=== PATIENT | female | born 1985 | race African-American/Black ===

== ENCOUNTER 2016-05-05 01:23 | Emergency (ER) | payer OTHER ==
[2016-05-05 01:16] LABS: INFLUENZA A NEG (NEG); INFLUENZA B NEG (NEG)
[~2016-05-05 01:23] MED LIST: ALBUTEROL17 G1 IH; BACTRIM DS TABL1 TAB PO; BENZONATATE PO; DEPAKOTE PO; MEDROL PO; RISPERIDONE PO; ZITHROMAX PO
== END 2016-05-05 02:10 | disposition home or self-care (01) ==
LOC: CED 01:23
PROVIDERS: Emergency Medicine
DX: J06.9 Acute upper respiratory infection, unspecified (principal); F31.9 Bipolar disorder, unspecified; F17.210 Nicotine dependence, cigarettes, uncomplicated
CPT/HCPCS: 87804; 99282

== ENCOUNTER 2016-11-14 06:20 | Emergency (ER) | payer OTHER ==
[~2016-11-14] VITALS: Ht 167.6 cm; Wt 102.5 kg
--- NOTE | ~2016-11-14 | EKG ---
PATIENT: MULU HERNDON UNIT #: [id number] Ventricular Rate: 121 BPM Atrial Rate: 121 BPM P-R Interval: 150 ms QRS Duration: 62 ms Q-T Interval: 332 ms QTC Calculation(Bezet): 471 ms P [place]: 74 degrees Calculated R [place]: 17 degrees Calculated T [place]: 21 degrees Diagnosis Line: Sinus tachycardia Diagnosis Line: Possible Left atrial enlargement Diagnosis Line: Borderline ECG Diagnosis Line: When compared with ECG of 27-DEC-2012 04:47, Diagnosis Line: No significant change was found Diagnosis Line: Confirmed by ADILENE GRAF MD ([id number]) on Diagnosis Line: 11/15/2016 9:43:51 AM INTERPRETING MD: LESIA JOSEPH
[2016-11-14 07:17] LABS: BASOPHIL% 0.4 % (0-2.5); EOSINOPHIL# 0.1 X10e3 (0-0.7); EOSINOPHIL% 0.8 % (0.0-7.0); HEMATOCRIT 41.7 % (35.0-45.0); HEMOGLOBIN 14.5 gm/dL (12.0-16.0); LYMPHOCYTE# 1.7 X10e3 (1.0-3.5); LYMPHOCYTE% 18.9 % (17.0-45.0); MEAN CELL VOLUME 87.6 FL (83-96); MEAN CORPUSCULAR HEMOGLOBIN 30.5 PG (28-34); MEAN CORPUSCULAR HGB CONC 34.9 g/dL (30-36); MEAN PLATELET VOLUME 9.2 FL (6.5-11.5); MONOCYTE# 0.5 X10e3 (0-1.0); MONOCYTE% 5.7 % (3.0-12.0); NEUTROPHIL# 6.8 X10e3 (1.5-7.1); NEUTROPHIL% 74.2 % (40-75); PLATELET COUNT 262 X10e3 (140-420); RED BLOOD COUNT 4.76 X10e (3.90-5.30); RED CELL DISTRIBUTION WIDTH 13.7 % (11.0-15.5); WHITE BLOOD COUNT 9.1 X10e3 (4.0-10.5)
[2016-11-14 07:19] LABS: DIFF IND NO
[2016-11-14 07:20] LABS: URINE SOURCE CLEAN CATCH
[2016-11-14 07:24] LABS: URINE APPEARANCE CLEAR; URINE BILIRUBIN NEG (NEG); URINE BLOOD NEG (NEG); URINE COLOR YELLOW; URINE GLUCOSE NEG (NEG); URINE KETONE NEG (NEG); URINE LEUKOCYTE ESTERASE 1+ (NEG); URINE NITRATE NEG (NEG); URINE PROTEIN NEG (NEG); URINE SPECIFIC GRAVITY 1.012 (1.003-1.035); URINE UROBILINOGEN 0.2 MG/DL (NEG)
[2016-11-14 07:27] LABS: CULTURE INDICATED? YES; URINE BACTERIA AUWI NEG (NEGATIVE); URINE SQUAMOUS EPITHELIAL CELL OCC /[HPF]
[2016-11-14 07:58] LABS: AMPHETAMINE NEG (NEG); BARBITURATES NEG (NEG); BENZODIAZEPINES NEG (NEG); COCAINE NEG (NEG); MARIJUANA NEG (NEG); OPIATES NEG (NEG); TRICYCLIC ANTIDEPRESSANTS NEG (NEG); U METHADONE NEG (NEG)
[2016-11-14 08:02] LABS: ALBUMIN SERUM 4.6 g/dL (3.5-5.0); ALKALINE PHOSPHATASE 59 U/L (32-92); ALT (SGPT) 29 U/L (10-40); AST (SGOT) 30 U/L (10-42); BILIRUBIN, DIRECT 0.1 mg/dL (0.0-0.2); BILIRUBIN,TOTAL 0.1 mg/dL (0.2-2.0); BLOOD UREA NITROGEN <5 mg/dL (9-23); BUN/CREATININE RATIO 6.25; CALCIUM SERUM 9.7 mg/dL (8.4-10.2); CARBON DIOXIDE 22 mmol/L (22-31); CHLORIDE 102 mmol/L (100-111); CPK (CREATINE PHOSPHOKINASE) 420 IU/L (26-140); CREATININE SERUM 0.8 mg/dL (0.6-1.4); GLUCOSE FASTING 155 mg/dL (70-110); POTASSIUM 3.4 mmol/L (3.5-5.1); PROTEIN TOTAL SERUM 8.9 g/dL (6.0-8.3); SODIUM 136 mmol/L (135-145)
== END 2016-11-14 09:35 | disposition home or self-care (01) ==
LOC: CED 06:20
PROVIDERS: Emergency Medicine
DX: F41.9 Anxiety disorder, unspecified (principal); M79.1 Myalgia; R00.0 Tachycardia, unspecified
CPT/HCPCS: 36415; 80048; 80076; 80307; 81003; 82550; 85025; 87086; 93005; 96360; 99285

== ENCOUNTER 2016-11-14 23:57 | Emergency (ER) | payer OTHER ==
[~2016-11-14] VITALS: Ht 157.5 cm; Wt 103.0 kg
--- NOTE | ~2016-11-14 | EKG ---
PATIENT: MULU HERNDON UNIT #: [id number] Ventricular Rate: 110 BPM Atrial Rate: 110 BPM P-R Interval: 162 ms QRS Duration: 62 ms Q-T Interval: 336 ms QTC Calculation(Bezet): 454 ms P [place]: 61 degrees Calculated R [place]: 47 degrees Calculated T [place]: 18 degrees Diagnosis Line: Sinus tachycardia Diagnosis Line: Possible Left atrial enlargement Diagnosis Line: Borderline ECG Diagnosis Line: No previous ECGs available Diagnosis Line: Confirmed by ADILENE GRAF MD ([id number]) on Diagnosis Line: 11/15/2016 9:46:54 AM INTERPRETING MD: LESIA JOSEPH
[2016-11-15 02:42] LABS: BASOPHIL% 0.4 % (0-2.5); DIFF IND NO; EOSINOPHIL# 0.1 X10e3 (0-0.7); EOSINOPHIL% 1.1 % (0.0-7.0); HEMATOCRIT 42.7 % (35.0-45.0); HEMOGLOBIN 14.9 gm/dL (12.0-16.0); LYMPHOCYTE# 2.4 X10e3 (1.0-3.5); LYMPHOCYTE% 23.5 % (17.0-45.0); MEAN CELL VOLUME 88.1 FL (83-96); MEAN CORPUSCULAR HEMOGLOBIN 30.8 PG (28-34); MONOCYTE# 0.7 X10e3 (0-1.0); MONOCYTE% 6.9 % (3.0-12.0); NEUTROPHIL# 6.9 X10e3 (1.5-7.1); NEUTROPHIL% 68.1 % (40-75); PLATELET COUNT 236 X10e3 (140-420); RED BLOOD COUNT 4.85 X10e (3.90-5.30); RED CELL DISTRIBUTION WIDTH 13.6 % (11.0-15.5); WHITE BLOOD COUNT 10.1 X10e3 (4.0-10.5)
[2016-11-15 02:56] LABS: POC - CKMB 2.2 ng/mL (0.0-7.9); POC - TROPONIN <0.05 ng/mL (<=0.05)
[2016-11-15 03:04] LABS: BUN/CREATININE RATIO 8.75; CALCIUM SERUM 9.5 mg/dL (8.4-10.2); CREATININE SERUM 0.8 mg/dL (0.6-1.4); POTASSIUM 3.3 mmol/L (3.5-5.1)
== END 2016-11-15 07:40 | disposition home or self-care (01) ==
LOC: CED 23:57
PROVIDERS: Emergency Medicine
DX: R00.2 Palpitations (principal); F17.200 Nicotine dependence, unspecified, uncomplicated; Z98.51 Tubal ligation status
CPT/HCPCS: 36415; 80048; 82553; 84443; 84484; 85025; 93005; 99285